=== PATIENT | female | born 1985 | race Caucasian/White ===

== ENCOUNTER → 2023-12-28 | Outpatient (CLI) | payer OTHER, SELFPAY | PROVIDERS: Referring Provider Internal Medicine; Visit Provider Internal Medicine | DX: Z23 Encounter for immunization (principal) | CPT/HCPCS: 90471; 90656 ==

== ENCOUNTER 2024-09-10 15:52 | Emergency (ER) | payer OTHER, SELFPAY ==
--- NOTE | 2024-09-10 16:11 | DI.CT.S_ITS ---
PROCEDURE: CT ABDOMEN PELVIS W CON INDICATIONS: weight loss, abd pain, TECHNIQUE: After the administration of intravenous contrast, axial sections acquired from the lung bases to the pubic symphysis. Coronal and sagittal reformats were performed. For radiation dose reduction, the following was used: automated exposure control, adjustment of mA and/or kV according to patient size. COMPARISON: None. FINDINGS: Image quality: Diagnostic Lower chest: Small fat containing left Bochdalek's hernia. Normal heart size. Liver: There is focal fat adjacent to the falciform ligament. Gallbladder and biliary system: Unremarkable, nondilated Pancreas: No ductal dilation Spleen: Nonenlarged Adrenals: No discrete nodules Kidneys: No solid renal mass. No hydronephrosis. Vessels and lymph nodes: The main portal vein appears patent. No abdominal aortic aneurysm. No enlarged lymph nodes by size criteria. Bowel and peritoneum: No acute small bowel obstruction. No drainable abscess or ascites. Possible mild segmental areas of colonic wall thickening, centered most in the splenic flexure. The appendix was not visualized. Stool ball is seen in the cecum. Body wall: Unremarkable Pelvis: Under distended urinary bladder. Reproductive organs are unremarkable on limited CT evaluation. Consider ultrasound if there is further concern Bones: No aggressive appearing osseous abnormality. IMPRESSION: Possible mild segmental areas of colonic wall thickening, most obvious at the splenic flexure. This could represent colitis. Colonoscopy correlation could further evaluate if clinically needed. No small bowel obstruction. A moderate cecal stool ball is present. Other findings above. Dictated by: Chong Saini M.D. on 09/10/2024 at 17:16 Approved by: Chong Saini M.D. on 09/10/2024 at 17:21
[2024-09-10 16:22] VITALS: BP 143/85; PULSE 82; RESP 16; TEMP 37; O2SAT 100
[2024-09-10 16:51] LABS: Add Manual Diff / Slide Review NO; Basophils Absolute Auto 100 /uL (0-100); Basophils Percent Auto 0.9 % (0-2); Eosinophils Absolute Auto 100 /uL (0-450); Eosinophils Percent Auto 1.2 % (2-4); Hematocrit 40.7 % (36-46); Hemoglobin 13.6 g/dL (12.0-16.0); Lymphocytes Absolute Auto 2300 /uL (1100-4500); Mean Corpuscular HGB Conc 33.5 % (30-36); Mean Corpuscular Hemoglobin 31.5 PG (26-34); Mean Corpuscular Volume 94.1 fL (80-100); Monocytes Absolute Auto 500 /uL (0-900); Monocytes Percent Auto 7.2 % (3-14); Neutrophils Absolute Auto 4600 /uL (1500-7000); Neutrophils Percent Auto 60.7 % (50-75); Platelet Count 272 X10^3/uL (150-400); Red Blood Cell Count 4.32 X10^6/uL (4.0-5.2); Red Cell Distribution Width 13.7 % (11.6-14.8); White Blood Cell Count 7.6 X10^3/uL (4.5-11.0)
[2024-09-10] MEDS: methylPREDNISolone 125 MG/2 ML VIAL IV (16:53)
[2024-09-10] MEDS: diphenhydrAMINE 50 MG/ML VIAL IV (16:53)
[2024-09-10 17:00] LABS: Bacteria Urine Occasional (0-1); Culture Indicated Urine Cult Not Indicated; Mucus Urine 1+ (Negative); RBC Urine 0-1/HPF (0-5/HPF); Squamous Epithelial Cell Urine 0-1 /HPF (0-5/HPF); Urine Volume 10mL (spun); WBC Urine 0-1/HPF (0-5/HPF)
[2024-09-10 17:09] LABS: Alanine Aminotransferase 19 IU/L (<35); Albumin 4.5 g/dL (3.5-5.0); Albumin Globulin Ratio 1.7 (1.0-2.8); Alkaline Phosphatase 56 U/L (38-126); Aspartate Aminotransferase 32 IU/L (14-36); BUN Creatinine Ratio 15.2 (6-22); Bilirubin Total 0.5 mg/dL (0.2-1.3); Blood Urea Nitrogen 12 mg/dL (7-17); Calcium 9.4 mg/dL (8.4-10.2); Carbon Dioxide 27 mmol/L (22-32); Chloride 104 mmol/L (98-107); Estimated Glomerular Filt Rate > 60 mL/min (>60); Globulin 2.6 g/dL (1.7-4.1); Glucose 87 mg/dL (70-99); HEMOLYSIS < 15 (0-50); Lipase 122 U/L (23-300); Sodium 138 mmol/L (137-145); Total Protein 7.1 g/dL (6.3-8.2)
--- NOTE | 2024-09-10 18:20 | ED_ITS ---
HPI - Abdominal Pain General Chief Complaint: Abdominal Pain Stated Complaint: abdomen pain Time Seen by Provider: 09/10/24 16:11 Source: patient, RN notes reviewed and old records reviewed Mode of arrival: Ambulatory Limitations: no limitations History of Present Illness HPI narrative: 39-year-old female history of [place] presents with complaint of some abdominal discomfort in the left but noticed more specifically very loud sounds particularly seemed to be coming from the right side of the abdomen for several months to a year. Patient has noted increase difficulty with maintaining weight and some weight loss particularly of the past 2 weeks. Has not noticed some occasional diarrheal stools but a change in caliber. No black or bloody stools. Patient notes did have a colonoscopy sometime ago for IBS type symptoms but was negative. Patient occasionally has nausea but no persistent nausea no vomiting. No new back or flank pain today. Denies any dysuria urgency or frequency. Is currently on their menses. They also notes some occasional night sweats but have related this more to be in on their menses. Patient states on sertraline no other daily medications. Report to contrast with hives. Related Data Previous Rx's ?Medication ?Instructions ?Recorded sertraline 100 mg tablet (Zoloft) 200 mg (2 x 100 mg) PO DAILY #60 04/20/24 tabs Allergies Allergy/AdvReac Type Severity Reaction Status Date / Time cefazolin Allergy Verified 09/10/24 16:23 Iodinated Contrast Media Allergy Hives Verified 09/10/24 16:23 Review of Systems Review of Systems ROS Unobtainable: All systems reviewed & are unremarkable except as noted in HPI and below Patient History Social History Smoking Status: Former smoker Smoking Status: Former smoker Exam Narrative Exam Narrative: GENERAL: Alert and oriented x three, thin, well-appearing female in mild distress. HEENT: Head normocephalic, atraumatic, EOMI, pupils reactive, face symmetric, moist mucous membranes NECK: Supple, full range of motion CARDIOVASCULAR: Regular rate and rhythm without murmurs, rubs or gallops. RESPIRATORY: Breath sounds equal bilaterally, no wheezes rales or rhonchi. ABDOMEN: Soft, very mild left upper quadrant tenderness. Normoactive bowel sounds all 4 quadrants. No guarding or rebound, rigidity, no mass : No CVA tenderness EXTREMITIES: Normal range of motion, no clubbing or edema. Neurovascularly intact NEUROLOGICAL: Cranial nerves II through XII grossly intact. Moving all extremities SKIN: Warm, dry, no petechiae, no rashes or lesions. Initial Vital Signs Initial Vital Signs: Vital Signs Temperature 98.6 F 09/10/24 16:22 Pulse Rate 82 09/10/24 16:22 Respiratory Rate 16 09/10/24 16:22 Blood Pressure 143/85 H 09/10/24 16:22 Pulse Oximetry 100 09/10/24 16:22 Oxygen Delivery Method Room Air 09/10/24 16:22 Course Orders Ordered: ED Orders 09/10/24 16:11 CT abdomen pelvis w con Stat 09/10/24 16:30 Complete Blood Count AUTO DIFF Stat Comprehensive Metabolic Panel Stat Lipase Stat Urine Microscopic Stat Discontinued Medications Diphenhydramine HCl (Diphenhydramine 50 Mg/Ml Vial) 50 mg IV NOW ONE Stop: 09/10/24 16:38 Last Admin: 09/10/24 16:53 Dose: 50 mg Documented By: SINDY Methylprednisolone (Methylprednisolone 125 Mg/2 Ml Vial) 125 mg IV NOW ONE Stop: 09/10/24 16:38 Last Admin: 09/10/24 16:53 Dose: 125 mg Documented By: SINDY Vital Signs Vital signs: Vital Signs - 8 hr 09/10/24 16:22 09/10/24 19:12 Temperature 98.6 F Pulse Rate 82 63 Respiratory Rate 16 Blood Pressure 143/85 H 137/67 Pulse Oximetry 100 96 Oxygen Delivery Method Room Air Room Air MDM - Abdominal Pain Lab Data 09/10/24 16:30 09/10/24 16:30 Labs: Lab Results 09/10/24 Range/Units 16:30 WBC 7.6 (4.5-11.0) X10^3/uL RBC 4.32 (4.0-5.2) X10^6/uL Hgb 13.6 (12.0-16.0) g/dL Hct 40.7 (36-46) % MCV 94.1 (80-100) fL MCH 31.5 (26-34) PG MCHC 33.5 (30-36) % RDW 13.7 (11.6-14.8) % Plt Count 272 (150-400) X10^3/uL Neut % (Auto) 60.7 (50-75) % Lymph % (Auto) 30.0 (25-40) % [place] % (Auto) 7.2 (3-14) % Eos % (Auto) 1.2 L (2-4) % Baso % (Auto) 0.9 (0-2) % Neut # (Auto) 4600 (4921-1420) /uL Lymph # (Auto) 2300 (3371-8606) /uL [place] # (Auto) 500 (0-900) /uL Eos # (Auto) 100 (0-450) /uL Baso # (Auto) 100 (0-100) /uL Sodium 138 (137-145) mmol/L Potassium 4.0 (3.4-5.1) mmol/L Chloride 104 (98-107) mmol/L Carbon Dioxide 27 (22-32) mmol/L BUN 12 (7-17) mg/dL Creatinine 0.79 (0.52-1.04) mg/dL Estimated GFR > 60 (>60) mL/min BUN/Creatinine Ratio 15.2 (6-22) Glucose 87 (70-99) mg/dL Calcium 9.4 (8.4-10.2) mg/dL Total Bilirubin 0.5 (0.2-1.3) mg/dL AST 32 (14-36) IU/L ALT 19 (<35) IU/L Alkaline Phosphatase 56 (38-126) U/L Total Protein 7.1 (6.3-8.2) g/dL Albumin 4.5 (3.5-5.0) g/dL Globulin 2.6 (1.7-4.1) g/dL Albumin/Globulin Ratio 1.7 (1.0-2.8) Lipase 122 (23-300) U/L Urine RBC 0-1/hpf (0-5/HPF) Urine WBC 0-1/hpf (0-5/HPF) Ur Squamous Epith Cells 0-1 /hpf (0-5/HPF) Urine Bacteria Occasional (0-1) (None) Urine Mucus 1+ H (Negative) Ur Culture Indicated? Cult not indicated Vol Urine Centrifuged 10ml (spun) Point of care testing: Point of Care Testing Test Results Negative Urine Dip Bedside Urine Glucose Negative Bedside Urine Bilirubin - Negative Bedside Urine Ketone - Negative Urine Specific [place] 1.030 Bedside Urine Occult Blood ++ Bedside Urine pH 5.5 Bedside Urine Protein - Negative Bedside Urine Urobilinogen +/- 1mg Bedside Urine Nitrite - Negative Bedside Urine Leukocytes - Negative Esterase MDM Narrative Medical decision making narrative: Labs show normal white count, hemoglobin and platelets, electrolytes, BUN creatinine and LFTs are normal. Point of care is negative. Patient has blood, no nitrates no leuks point of care urine. Micro shows 1 red cell 1 white cell 1 squamous, no bacteria. CT abdomen pelvis notes small fat containing left both legs hernia. Focal fat adjacent to the falciform ligament on the liver. Possible mild segmental areas of colonic wall thickening centered most in the splenic flexure stool ball is cecum. This could represent colitis. Colonoscopy correlation could further evaluate if clinically needed no small-bowel obstruction. 39-year-old female with 3 months of abdominal pain increasingly worse discomfort left lower quadrant in particular with nausea, weight loss. Reviewed labs and findings with the patient would recommend colonoscopy to evaluate for possible Crohn/ulcerative colitis versus other potential causes. Patient we will reach out to set up follow up. Discussed return precautions. Discharge Plan Departure Patient Disposition: Home Clinical Impression: Colitis Activity Restrictions/Additional Instructions: Your imaging shows possible segmental areas of colonic wall thickening most obvious since a splenic fracture, do recommend you have colonoscopy to evaluate for possible biopsy. It is also noted you have a moderate cecal stool ball. Incidentally you have a small fat containing left Bochdalek's hernia on your imaging. Follow up colonoscopy contacts included below. Please return if you develop fevers, rapidly worsening or new abdominal back or flank pain, persistent vomiting, new black or bloody stools, lightheadedness or passing out or other new or concerning changes. Prescriptions: No Action sertraline [Zoloft] 100 mg tablet 200 mg PO DAILY Qty: 60 6RF Referrals: Jhon Lozada MD [Physician, General Surgery] Stand Alone Forms: Patient Portal/API
[2024-09-10 19:12] VITALS: BP 137/67; PULSE 63; O2SAT 96
== END 2024-09-10 19:12 | disposition home or self-care (01) ==
PROVIDERS: Emergency Provider Emergency Medicine
DX: K52.9 Noninfective gastroenteritis and colitis, unspecified (principal)
CPT/HCPCS: 36415; 74177; 80053; 81003; 81015; 81025; 83690; 85025; 96374; 96375; 99284; J1200; J2919; Q9967

== ENCOUNTER 2024-09-13 12:05 | Day surgery (SDC) | payer OTHER, SELFPAY ==
--- NOTE | 2024-09-13 | PATH_ITS ---
[facility] Accession Number: [id number] No. of containers..05 Tissue . 01 Material submitted: . PART A: small bowel - ILEUM TERMINAL PART B: colon - COLON, RIGHT PART C: colon - COLON, TRANSVERSE PART D: colon - COLON, LEFT PART E: rectum - RECTAL . 01 Diagnosis: Part A: ILEUM TERMINAL: Ileal mucosa with no diagnostic alterations. No active inflammation, granulomas, or dysplasia identified. . Part B: COLON, RIGHT: Colonic mucosa with no diagnostic alterations. No active inflammation, granulomas, dysplasia, or malignancy identified. . Part C: COLON, TRANSVERSE: Colonic mucosa with no diagnostic alterations. No active inflammation, granulomas, dysplasia, or malignancy identified. . Part D: COLON, LEFT: Colonic mucosa with no diagnostic alterations. No active inflammation, granulomas, dysplasia, or malignancy identified. . Part E: RECTAL: Colonic mucosa with no diagnostic alterations. No active inflammation, granulomas, dysplasia, or malignancy identified. [facility] 09/19/2024 1545 Local . 01 Electronically signed: . Edwin Kirk MD, Pathologist NPI- [id number] . 01 Gross description: . Part A: ILEUM TERMINAL: Received in formalin is 1 fragment(s) of smith, soft tissue measuring 0.6 x 0.2 x 0.2 cm submitted entirely in 1 cassette(s) . Part B: COLON, RIGHT: Received in formalin is 1 fragment(s) of smith, soft tissue measuring 0.5 x 0.3 x 0.3 cm submitted entirely in 1 cassette(s) . Part C: COLON, TRANSVERSE: Received in formalin is 1 fragment(s) of smith, soft tissue measuring 0.3 x 0.2 x 0.2 cm submitted entirely in 1 cassette(s) . Part D: COLON, LEFT: Received in formalin are 2 fragment(s) of smith, soft tissue measuring 0.3 x 0.3 x 0.3 cm to 0.4 x 0.2 x 0.2 cm submitted entirely in 1 cassette(s) . Part E: RECTAL: Received in formalin are 2 fragment(s) of smith, soft tissue measuring 0.1 x 0.1 x 0.1 cm to 0.3 x 0.2 x 0.2 cm submitted entirely in 1 cassette(s) /[facility] 09/19/2024 1545 Local . 01 Pathologist provided ICD-10: K52.9 . 01 CPT . 682985, 000447, 006550, 506631, 833143 Specimen Comment: A courtesy copy of this report has been sent to [phone] Performed at: [address] [id number] MD Edwin Kirk MD Phone: [phone]
[2024-09-13 12:34] VITALS: BP 95/61; PULSE 66; RESP 16; TEMP 36.6; O2SAT 99
[2024-09-13] MEDS: LACTATED RINGERS 1,000 ML 42 ML IV (12:54)
[2024-09-13] MEDS: ONDANSETRON 4 MG/2 ML INJ IV (12:54)
--- NOTE | 2024-09-13 13:24 | PM.HP.IH.1 ---
History of Present Illness History of Present Illness Date Patient Seen: 09/13/24 Time Patient Seen: 13:24 Chief complaint[place] [facility]arrative: Kiya is a 39 year old woman who presents for a colonoscopy after a CT scan showed some possible thickening in the region of the splenic flexure. She had been experiencing abdominal pain and an audible grinding type sound that correlatd with bowel peristalsis over roughly one year. She experienced increased pain and went to the ER early this week where the CT scan was performed. No melena or rectal bleeding. She has lost roughly 10 lbs recently despite trying to gain weight. She did have a colonoscopy some 20 years ago for IBS type symptoms. She has had an open appendectomy as a child. [facility] Social History Smoking Status: Former smoker alcohol intake: never Meds Home Medications and Allergies Home Medications ?Medication ?Instructions ?Recorded ?Confirmed ?Type sertraline 100 mg tablet (Zoloft) 200 mg (2 x 100 mg) PO DAILY #60 04/20/24 09/13/24 Rx tabs Allergies Allergy/AdvReac Type Severity Reaction Status Date / Time cefazolin Allergy Verified 09/13/24 12:33 Iodinated Contrast Media Allergy Hives Verified 09/13/24 12:33 Exam Vital Signs (past 8 hours): - 09/13/24 12:34 Temperature 97.8 F Pulse Rate 66 Respiratory Rate 16 Blood Pressure 95/61 Pulse Oximetry 99 Oxygen Delivery Method Room Air Oxygen Delivery Method Room Air Const General: healthy appearing Assessment & Plan Assessment and plan (1) Abnormal findings on imaging test: Status: Acute Plan Colonoscopy Time-Based Coding :: [TOTAL MINUTES] spent with patient and on the chart (including review of chart, obtaining history, exam, reviewing outside data, placing orders, documenting exam and treatment plan, and counseling patient) on [DATE]. [employer] Document charge(s): No
[2024-09-13 14:24] VITALS: BP 103/61; PULSE 68; RESP 20; TEMP 36.2; O2SAT 100
--- NOTE | 2024-09-13 14:24 | PM.OP.COLON ---
Operative Date/Time/Diagnoses Date of procedure: 09/13/24 Time of procedure: 14:24 Pre-op diagnosis: Abnormal CT scan Post-op diagnosis: same Procedure & Clinicians Study performed: Colonoscopy Same procedure(s) as scheduled: Yes Surgeon: Jhon Lozada Procedure Notes Procedure in detail: Surgeon: Jhon Lozada MD Anesthesia: Shayne Guillory D.O. Procedure: The patient was brought to the endoscopy suite, placed in left lateral decubitus position. The patient was connected to monitoring devices. A time-out was performed. Sedation was administered. Once the patient was adequately sedated, a digital rectal exam was performed and was normal. The scope was then inserted and advanced to the cecum where the appendiceal orifice was identified and photographed. The terminal ileum was intubated and no gross abnormalities were visualized. Random biopsies were taken from the ileal mucosa with cold forceps. The scope was then slowly withdrawn over greater than 6 minutes. The mucosa was thoroughly inspected. No gross abnormalities were seen. Random biopsies were taken from the right colon, transverse colon, left colon and rectum with cold forceps. The scope was retroflexed in the rectum. No abnormalities were seen. The scope was straightened and removed. The patient was awakened and brought to recovery. Scope withdrawal time: 10 minutes Sedation time: 17 minutes EBL: 5 mL Findings: Grossly normal colon and terminal ileum Post-procedure Disposition: PACU
[2024-09-13 14:29] VITALS: BP 107/65; PULSE 56; RESP 16; O2SAT 99
[2024-09-13 14:34] VITALS: BP 102/64; PULSE 52; RESP 18; O2SAT 99
[2024-09-13 14:45] VITALS: BP 97/62; PULSE 58; RESP 16; TEMP 36.2; O2SAT 99
[2024-09-13 14:52] VITALS: BP 98/64; PULSE 56; RESP 12; TEMP 36.2; O2SAT 99
== END 2024-09-13 15:08 | disposition home or self-care (01) ==
PROVIDERS: Referring Provider Surgery; Visit Provider Surgery
PROC: 0DJD8ZZ Inspection of Lower Intestinal Tract, Via Natural or Artificial Opening Endoscopic (ICD-10-PCS; CPT 45378; principal; 2024-09-13 13:30)
DX: R93.5 Abnormal findings on diagnostic imaging of other abdominal regions, including retroperitoneum (principal); R10.9 Unspecified abdominal pain; R63.4 Abnormal weight loss; Z87.891 Personal history of nicotine dependence
CPT/HCPCS: 45380; J2405; J2704

== ENCOUNTER → 2024-09-14 12:39 | Outpatient (CLI) | payer OTHER, SELFPAY ==
[2024-09-14 14:07] LABS: Carcinoembryonic Antigen 0.9 ng/mL (0.1-3.0)
== END ==
PROVIDERS: Referring Provider Obstetrics & Gynecology; Visit Provider Obstetrics & Gynecology
DX: R93.89 Abnormal findings on diagnostic imaging of other specified body structures (principal)
CPT/HCPCS: 36415; 82378; 86304; 86305

== ENCOUNTER 2024-10-07 19:31 | Emergency (ER) | payer OTHER, SELFPAY ==
[2024-10-07 19:38] VITALS: BP 120/74; PULSE 60; RESP 18; TEMP 37; O2SAT 99
--- NOTE | 2024-10-07 19:51 | ED_ITS ---
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 It was a solid needle she felt it go through both pairs of gloves and solidly through her skin. She immediately washed her hand, cleaned the wound, replaced the gloves. Patient was not exposed. The source patient is very low risk. 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 Related Data Previous Rx's ?Medication ?Instructions ?Recorded sertraline 100 mg tablet (Zoloft) 200 mg (2 x 100 mg) PO DAILY #60 04/20/24 tabs sucralfate 1 gram tablet (Carafate) 1 g PO QACHS #30 t abs 09/17/24 Allergies Allergy/AdvReac Type Severity Reaction Status Date / Time cefazolin Allergy Verified 10/07/24 19:38 Iodinated Contrast Media Allergy Hives Verified 10/07/24 19:38 Patient History Social History alcohol intake: never Exam Initial Vital Signs Initial Vital Signs: Vital Signs Temperature 98.6 F 10/07/24 19:38 Pulse Rate 60 10/07/24 19:38 Respiratory Rate 18 10/07/24 19:38 Blood Pressure 120/74 10/07/24 19:38 Pulse Oximetry 99 10/07/24 19:38 Oxygen Delivery Method Room Air 10/07/24 19:38 General: Alert appropriate in no acute distress Respiratory: Able to speak in full sentences, no obvious respiratory distress Skin: No obvious rashes, warm and dry Neurologic: Grossly intact no obvious asymmetries or abnormalities Psych: appropriate insight and affect, cooperative Extremity: Tiny puncture wound mid left thumb not currently bleeding Course Orders Ordered: ED Orders 10/07/24 19:54 Alanine Aminotransferase Stat HIV 1 & 2 Ab/Ag 4th Gen Combo Stat Hep C Virus Ab w/Reflex Quant Stat Vital Signs Vital signs: Vital Signs - 8 hr 10/07/24 19:38 Temperature 98.6 F Pulse Rate 60 Respiratory Rate 18 Blood Pressure 120/74 Pulse Oximetry 99 Oxygen Delivery Method Room Air Medical Decision Making Lab Data Labs: Lab Results 10/07/24 Range/Units 19:54 ALT 20 (<35) IU/L Hepatitis C Antibody Reactive H (NEGATIVE) s/c HIV 1&2 Ab/P24 Ag 4thGn Negative (NEGATIVE) MDM Narrative Medical decision making narrative: Needlestick exposure while doing surgery this afternoon. It was a solid needle, appropriately cleaned post exposure. Low risk patient with all forms filled out by patient and lab testing done. Lab testing including quantitative hep C as well as HIV testing is done for the patient. She recently had positive hepatitis-B titers did not want to have this retested. She also is up-to-date on tetanus and declined any tetanus today. With shared decision-making given the very low exposure risk no post exposure prophylaxis was desired. She is safely discharged Discharge Plan Departure Patient Disposition: Home Clinical Impression: Accidental hypodermic needlestick injury with exposure to body fluid Instructions: DI for Accidental Exposure to Body Fluids Prescriptions: No Action sertraline [Zoloft] 100 mg tablet 200 mg PO DAILY Qty: 60 6RF sucralfate [Carafate] 1 gram tablet 1 g PO QACHS Qty: 30 2RF Stand Alone Forms: Patient Portal/API
[2024-10-07 20:14] LABS: Alanine Aminotransferase 20 IU/L (<35)
[2024-10-07 21:26] LABS: HIV 1 & 2 Ab/Ag 4th Gen Combo NEGATIVE (NEGATIVE); Hep C Virus Ab w/Reflex Quant REACTIVE s/c (NEGATIVE)
== END 2024-10-07 20:23 | disposition home or self-care (01) ==
PROVIDERS: Emergency Provider Emergency Medicine
DX: S69.92XA Unspecified injury of left wrist, hand and finger(s), initial encounter (principal); Z77.21 Contact with and (suspected) exposure to potentially hazardous body fluids
CPT/HCPCS: 84460; 86803; 87389; 87522; 99281; 99283

== ENCOUNTER 2024-10-14 12:53 | Emergency (ER) | payer OTHER, SELFPAY ==
[2024-10-14] VITALS (13 sets, daily range): BP systolic 120–142; BP diastolic 60–81; PULSE 55–72; RESP 16–23; TEMP 36.4; O2SAT 96–100
[2024-10-14 13:35] LABS: Add Manual Diff / Slide Review NO; Hematocrit 42.2 % (36-46); Hemoglobin 14.6 g/dL (12.0-16.0); Lymphocytes Absolute Auto 2100 /uL (1100-4500); Mean Corpuscular HGB Conc 34.6 % (30-36); Mean Corpuscular Hemoglobin 32.3 PG (26-34); Mean Corpuscular Volume 93.2 fL (80-100); Platelet Count 275 X10^3/uL (150-400)
[2024-10-14 13:41] LABS: Alanine Aminotransferase 24 IU/L (<35); Albumin 4.8 g/dL (3.5-5.0); Albumin Globulin Ratio 1.7 (1.0-2.8); Alkaline Phosphatase 58 U/L (38-126); Blood Urea Nitrogen 8 mg/dL (7-17); Calcium 9.6 mg/dL (8.4-10.2); Carbon Dioxide 23 mmol/L (22-32); Chloride 105 mmol/L (98-107); Estimated Glomerular Filt Rate > 60 mL/min (>60); Globulin 2.8 g/dL (1.7-4.1); Glucose 93 mg/dL (70-99); HEMOLYSIS < 15 (0-50); Lipase 238 U/L (23-300); Potassium 3.7 mmol/L (3.4-5.1); Sodium 138 mmol/L (137-145); Total Protein 7.6 g/dL (6.3-8.2)
--- NOTE | 2024-10-14 13:53 | DI.CT.S_ITS ---
PROCEDURE: CT ABDOMEN PELVIS W CON INDICATIONS: Abdominal pain. Possible bowel obstruction. TECHNIQUE: After the administration of intravenous contrast, axial sections acquired from the lung bases to the pubic symphysis. Coronal and sagittal reformats were performed. For radiation dose reduction, the following was used: automated exposure control, adjustment of mA and/or kV according to patient size. COMPARISON: [facility], CT, CT ABDOMEN PELVIS W CON, 09/10/2024, 16:59. FINDINGS: Image quality: Diagnostic. Lower Chest: No significant findings. ABDOMEN: Liver: No solid mass. Focal fatty infiltration adjacent to the falciform ligament remains unchanged Gallbladder: No radiopaque gallstones or wall thickening. Biliary ducts: No biliary dilation. Pancreas: No ductal dilation. Spleen: Size is within normal limits. Adrenal Glands: No adrenal nodules. Kidneys and Ureters: No hydronephrosis. No solid mass. No complex renal cystic lesion which requires follow up. Stomach and Bowel: Normal colonic caliber, without significant wall thickening. Peritoneum: No abnormal intraperitoneal fluid. No free air. Physiologic pelvis, similar prior Ventral Wall: No significant ventral hernia. Abdominal Nodes: No retroperitoneal or mesenteric adenopathy by size criteria. Vessels: Aorta and inferior vena cava are normal in size. PELVIS: Pelvic Organs: Unremarkable. Bladder: No bladder wall thickening, accounting for underdistention. Pelvic Nodes: No enlarged lymph nodes. Miscellaneous: No inguinal hernias are seen. Bones: No aggressive osseous abnormality. IMPRESSION: No evidence of bowel obstruction Approved by: Tj Reddy M.D. on 10/14/2024 at 13:52
[2024-10-14] MEDS: diphenhydrAMINE 50 MG/ML VIAL IV (14:11)
[2024-10-14] MEDS: ONDANSETRON 4 MG/2 ML INJ IV (14:11)
--- NOTE | 2024-10-14 15:42 | ED.ABDPAIN ---
HPI - Abdominal Pain General Chief Complaint: Abdominal Pain Stated Complaint: Abdominal pain, suspected bowel obstruction Time Seen by Provider: 10/14/24 13:53 Source: patient Mode of arrival: Ambulatory History of Present Illness HPI narrative: 39 years old female came today complaining of intermittent generalized abdominal pain since August 2024. The latest episode of abdominal pain started 2 days ago and today the pain got worse with nausea vomiting after food. Her last bowel movement was yesterday and was normal. She denied any passing gas, fever, chest pain, shortness of breath, dizziness, loss of consciousness, urine problem. She finished her period 3 days ago. Related Data Previous Rx's ?Medication ?Instructions ?Recorded sertraline 100 mg tablet (Zoloft) 200 mg (2 x 100 mg) PO DAILY #60 04/20/24 tabs sucralfate 1 gram tablet (Carafate) 1 g PO QACHS #30 tabs 09/17/24 Allergies Allergy/AdvReac Type Severity Reaction Status Date / Time cefazolin Allergy Verified 10/14/24 12:57 Cephalosporins Allergy SJS Verified 10/14/24 12:57 blisters Iodinated Contrast Media Allergy Anaphylaxis Verified 10/14/24 12:57 Review of Systems Review of Systems Narrative: Positive for intermittent generalized abdominal pain since August 2024 and got worse today. Nausea vomiting. Negative for fever, chest pain, shortness of breath, urine problem, diarrhea. Patient History Social History alcohol intake: never Exam Initial Vital Signs Initial Vital Signs: Vital Signs Temperature 97.5 F L 10/14/24 12:57 Pulse Rate 72 10/14/24 12:57 Respiratory Rate 17 10/14/24 12:57 Blood Pressure 142/72 H 10/14/24 12:57 Pulse Oximetry 100 10/14/24 12:57 Oxygen Delivery Method Room Air 10/14/24 12:57 Const General: cooperative, well developed and No acute distress Neck Neck: supple Resp Other: Clear to auscultation bilaterally. No wheezing or rhonchi. No respiratory distress. Cardio Other: Normal S1-S2 without murmur. Regular rhythm. GI Other: Generalized mild tenderness on palpation without guarding or rebound tenderness or distention. Skin General: no rashes or lesions noted Neuro Other: Alert oriented x3. Answers question appropriately. Extrem Other: No pedal edema on both legs. Course Orders Ordered: Discontinued Medications Diphenhydramine HCl (Diphenhydramine 50 Mg/Ml Vial) 50 mg IV NOW ONE Stop: 10/14/24 14:02 Last Admin: 10/14/24 14:11 Dose: 50 mg Documented By: CHLOE Hydromorphone HCl (Hydromorphone Hcl 0.5 Mg/0.5 Ml Syringe) 0.5 mg IV NOW ONE Stop: 10/14/24 14:02 Last Admin: 10/14/24 14:10 Dose: 0.5 mg Documented By: CHLOE Hydromorphone HCl (Hydromorphone Hcl 0.5 Mg/0.5 Ml Syringe) 0.5 mg IV NOW ONE Stop: 10/14/24 15:14 Last Admin: 10/14/24 15:33 Dose: 0.5 mg Documented By: AGUILA Lactated Ringer's (Lactated Ringers) 1,000 mls @ 1,000 mls/hr IV BOLUS ONE Stop: 10/14/24 16:42 Last Infusion: 10/14/24 17:15 Dose: Infused Documented By: Admin: 10/14/24 16:02 Dose: 1,000 mls/hr Documented By: AGUILA Methylprednisolone (Methylprednisolone 125 Mg/2 Ml Vial) 125 mg IV NOW ONE Stop: 10/14/24 14:02 Last Admin: 10/14/24 14:10 Dose: 125 mg Documented By: CHLOE Ondansetron HCl (Ondansetron 4 Mg/2 Ml Inj) 4 mg IV NOW PRN PRN Reason: Nausea And Vomiting Last Admin: 10/14/24 14:11 Dose: 4 mg Documented By: CHLOE Ondansetron HCl (Ondansetron 4 Mg Odt) 4 mg PO NOW PRN PRN Reason: Nausea And Vomiting Vital Signs Vital signs: Vital Signs - 8 hr 10/14/24 12:57 10/14/24 13:24 10/14/24 13:25 Temperature 97.5 F L Pulse Rate 72 69 Respiratory Rate 17 Blood Pressure 142/72 H 135/81 Pulse Oximetry 100 97 Oxygen Delivery Method Room Air 10/14/24 13:25 10/14/24 13:30 10/14/24 13:30 Temperature Pulse Rate 62 55 L Respiratory Rate Blood Pressure 134/69 Pulse Oximetry 99 98 Oxygen Delivery Method Room Air 10/14/24 14:00 10/14/24 14:00 10/14/24 14:38 Temperature Pulse Rate 59 L 71 Respiratory Rate Blood Pressure 123/80 Pulse Oximetry 99 100 Oxygen Delivery Method Room Air 10/14/24 15:00 10/14/24 15:30 10/14/24 15:40 Temperature Pulse Rate 63 66 66 Respiratory Rate 20 18 23 Blood Pressure Pulse Oximetry 98 96 96 Oxygen Delivery Method 10/14/24 15:40 10/14/24 16:00 10/14/24 16:00 Temperature Pulse Rate 63 Respiratory Rate Blood Pressure 121/76 126/67 Pulse Oximetry 96 Oxygen Delivery Method MDM - Abdominal Pain Lab Data 10/14/24 13:21 10/14/24 13:21 Labs: Lab Results 10/14/24 Range/Units 13:21 WBC 7.0 (4.5-11.0) X10^3/uL RBC 4.53 (4.0-5.2) X10^6/uL Hgb 14.6 (12.0-16.0) g/dL Hct 42.2 (36-46) % MCV 93.2 (80-100) fL MCH 32.3 (26-34) PG MCHC 34.6 (30-36) % RDW 13.9 (11.6-14.8) % Plt Count 275 (150-400) X10^3/uL Neut % (Auto) 59.5 (50-75) % Lymph % (Auto) 29.6 (25-40) % [place] % (Auto) 7.2 (3-14) % Eos % (Auto) 2.5 (2-4) % Baso % (Auto) 1.2 (0-2) % Neut # (Auto) 4200 (0240-5428) /uL Lymph # (Auto) 2100 (5009-7029) /uL [place] # (Auto) 500 (0-900) /uL Eos # (Auto) 200 (0-450) /uL Baso # (Auto) 100 (0-100) /uL Sodium 138 (137-145) mmol/L Potassium 3.7 (3.4-5.1) mmol/L Chloride 105 (98-107) mmol/L Carbon Dioxide 23 (22-32) mmol/L BUN 8 (7-17) mg/dL Creatinine 0.73 (0.52-1.04) mg/dL Estimated GFR > 60 (>60) mL/min BUN/Creatinine Ratio 11.0 (6-22) Glucose 93 (70-99) mg/dL Calcium 9.6 (8.4-10.2) mg/dL Total Bilirubin 0.8 (0.2-1.3) mg/dL AST 32 (14-36) IU/L ALT 24 (<35) IU/L Alkaline Phosphatase 58 (38-126) U/L Total Protein 7.6 (6.3-8.2) g/dL Albumin 4.8 (3.5-5.0) g/dL Globulin 2.8 (1.7-4.1) g/dL Albumin/Globulin Ratio 1.7 (1.0-2.8) Lipase 238 (23-300) U/L Point of care testing: Point of Care Testing Test Results Negative Urine Dip Bedside Urine Glucose Negative Bedside Urine Bilirubin - Negative Bedside Urine Ketone - Negative Urine Specific [place] 1.010 Bedside Urine Occult Blood +/- Bedside Urine pH 6.0 Bedside Urine Protein - Negative Bedside Urine Urobilinogen - Negative Bedside Urine Nitrite - Negative Bedside Urine Leukocytes - Negative Esterase Imaging Data CT scan - abdomen/pelvis: Radiologist's Impression: PROCEDURE: CT ABDOMEN PELVIS W CON INDICATIONS: Abdominal pain. Possible bowel obstruction. TECHNIQUE: After the administration of intravenous contrast, axial sections acquired from the lung bases to the pubic symphysis. Coronal and sagittal reformats were performed. For radiation dose reduction, the following was used: automated exposure control, adjustment of mA and/or kV according to patient size. COMPARISON: [facility], CT, CT ABDOMEN PELVIS W CON, 09/10/2024, 16:59. FINDINGS: Image quality: Diagnostic. Lower Chest: No significant findings. ABDOMEN: Liver: No solid mass. Focal fatty infiltration adjacent to the falciform ligament remains unchanged Gallbladder: No radiopaque gallstones or wall thickening. Biliary ducts: No biliary dilation. Pancreas: No ductal dilation. Spleen: Size is within normal limits. Adrenal Glands: No adrenal nodules. Kidneys and Ureters: No hydronephrosis. No solid mass. No complex renal cystic lesion which requires follow up. Stomach and Bowel: Normal colonic caliber, without significant wall thickening. Peritoneum: No abnormal intraperitoneal fluid. No free air. Physiologic pelvis, similar prior Ventral Wall: No significant ventral hernia. Abdominal Nodes: No retroperitoneal or mesenteric adenopathy by size criteria. Vessels: Aorta and inferior vena cava are normal in size. PELVIS: Pelvic Organs: Unremarkable. Bladder: No bladder wall thickening, accounting for underdistention. Pelvic Nodes: No enlarged lymph nodes. Miscellaneous: No inguinal hernias are seen. Bones: No aggressive osseous abnormality. IMPRESSION: No evidence of bowel obstruction Approved by: Tj Reddy M.D. on 10/14/2024 at 13:52 MDM Narrative Medical decision making narrative: 39 years old female with intermittent abdominal pain since August 2024 and latest episode started 2 days ago and got worse today. He also reported nausea vomiting but denied any urine symptoms, diarrhea. Her last bowel movement was yesterday. On exam showed generalized mild abdominal tenderness on palpation without guarding or rebound tenderness or distention. Her CV exam, lung exam were normal. Her CBC, CMP, lipase were normal. A UA and urine test were normal. Her CT scan abdomen and pelvis showed no acute finding. I discussed the case with our on-call surgeon who came down and did a consult in the ED. she will continue with Tylenol as needed for pain and drink plenty of fluid. She will follow up with a car seat coverer outpatient. Discharge Plan Departure Patient Disposition: Home Clinical Impression: Abdominal pain, Nausea & vomiting Instructions: DI for Abdominal Pain-Adult, Nausea and Vomiting-Adult Activity Restrictions/Additional Instructions: Please set up primary care doctor and car seat coverer for follow up outpatient. Please come back to the emergency room if any worsening symptoms including but not limited to chest pain, shortness of breath, fever, worsening abdominal pain, persistent nausea vomiting, dehydration. Prescriptions: No Action sertraline [Zoloft] 100 mg tablet 200 mg PO DAILY Qty: 60 6RF sucralfate [Carafate] 1 gram tablet 1 g PO QACHS Qty: 30 2RF Stand Alone Forms: Patient Portal/API
[2024-10-14] MEDS: LACTATED RINGERS 1,000 ML 1000 ML IV (16:02)
--- NOTE | 2024-10-14 16:47 | P.CONS_ITS ---
History of Present Illness Consult details Date Patient Seen: 10/14/24 Time Patient Seen: 16:48 Chief complaint: Abdominal pain, suspected bowel obstruction Narrative: The patient is a 39-year-old female who presents with about a 7-8 week history of vague abdominal pain with aggressive borborygmi. She describes loud episodes of borborygmi followed by projectile vomiting without any nausea. Of note, the patient had an open appendectomy as a child. She denies fevers and chills. Her bowel habits are variable but of late have been fairly normal and regular. She has undergone a workup with the local surgeon, Dr. Lozada. She underwent a colonoscopy September 13 with no significant findings. Random biopsies were taken both of the colon and the terminal ileum per the colonoscopy report and the pathology was negative according to the patient. She presents today due to feeling of abdominal pressure. She denies any vomiting. She is somewhat concerned that she could have a possible bowel obstruction. She states she has not passed any flatus since Tuesday. The patient was due to travel across country to [place] today and canceled her flight due to concerns about her abdomen. Meds Home Medications and Allergies Home Medications ?Medication ?Instructions ?Recorded ?Confirmed ?Type sertraline 100 mg tablet (Zoloft) 200 mg (2 x 100 mg) PO DAILY #60 04/20/24 09/13/24 Rx tabs sucralfate 1 gram tablet (Carafate) 1 g PO QACHS #30 t abs 09/17/24 Rx Allergies Allergy/AdvReac Type Severity Reaction Status Date / Time cefazolin Allergy Verified 10/14/24 12:57 Cephalosporins Allergy SJS Verified 10/14/24 12:57 blisters Iodinated Contrast Media Allergy Anaphylaxis Verified 10/14/24 12:57 Review of Systems Review of Systems ROS: Yes All systems reviewed with the patient and are negative except as otherwise documented Exam Vital Signs (past 8 hours): - 10/14/24 12:57 10/14/24 13:24 10/14/24 13:25 Temperature 97.5 F L Pulse Rate 72 69 Respiratory Rate 17 Blood Pressure 142/72 H 135/81 Pulse Oximetry 100 97 Oxygen Delivery Method Room Air 10/14/24 13:25 10/14/24 13:30 10/14/24 13:30 Temperature Pulse Rate 62 55 L Respiratory Rate Blood Pressure 134/69 Pulse Oximetry 99 98 Oxygen Delivery Method Room Air 10/14/24 14:00 10/14/24 14:00 10/14/24 14:38 Temperature Pulse Rate 59 L 71 Respiratory Rate Blood Pressure 123/80 Pulse Oximetry 99 100 Oxygen Delivery Method Room Air 10/14/24 15:00 10/14/24 15:30 10/14/24 15:40 Temperature Pulse Rate 63 66 66 Respiratory Rate 20 18 23 Blood Pressure Pulse Oximetry 98 96 96 Oxygen Delivery Method 10/14/24 15:40 10/14/24 16:00 10/14/24 16:00 Temperature Pulse Rate 63 Respiratory Rate Blood Pressure 121/76 126/67 Pulse Oximetry 96 Oxygen Delivery Method Oxygen Delivery Method Room Air Narrative Exam Narrative: The patient is alert and appears worried. Neck is supple Chest is clear to auscultation bilaterally Cardiac reveals a regular rate and rhythm Abdomen is mildly distended, soft with diffuse mild tenderness without guarding or rigidity. She has some tympany over the transverse colon. There are no peritoneal signs. Bowel sounds are hypoactive Objective Imaging Abdominal x-ray: Radiologist's impression: PROCEDURE: CT ABDOMEN PELVIS W CON INDICATIONS: Abdominal pain. Possible bowel obstruction. TECHNIQUE: After the administration of intravenous contrast, axial sections acquired from the lung bases to the pubic symphysis. Coronal and sagittal reformats were performed. For radiation dose reduction, the following was used: automated exposure control, adjustment of mA and/or kV according to patient size. COMPARISON: [facility], CT, CT ABDOMEN PELVIS W CON, 09/10/2024, 16:59. FINDINGS: Image quality: Diagnostic. Lower Chest: No significant findings. ABDOMEN: Liver: No solid mass. Focal fatty infiltration adjacent to the falciform ligament remains unchanged Gallbladder: No radiopaque gallstones or wall thickening. Biliary ducts: No biliary dilation. Pancreas: No ductal dilation. Spleen: Size is within normal limits. Adrenal Glands: No adrenal nodules. Kidneys and Ureters: No hydronephrosis. No solid mass. No complex renal cystic lesion which requires follow up. Stomach and Bowel: Normal colonic caliber, without significant wall thickening. Peritoneum: No abnormal intraperitoneal fluid. No free air. Physiologic pelvis, similar prior Ventral Wall: No significant ventral hernia. Abdominal Nodes: No retroperitoneal or mesenteric adenopathy by size criteria. Vessels: Aorta and inferior vena cava are normal in size. PELVIS: Pelvic Organs: Unremarkable. Bladder: No bladder wall thickening, accounting for underdistention. Pelvic Nodes: No enlarged lymph nodes. Miscellaneous: No inguinal hernias are seen. Bones: No aggressive osseous abnormality. IMPRESSION: No evidence of bowel obstruction Approved by: Tj Reddy M.D. on 10/14/2024 at 13:52 Labs 10/14/24 13:21 10/14/24 13:21 Labs: Laboratory Results - last 24 hr 10/14/24 13:21 WBC 7.0 RBC 4.53 Hgb 14.6 Hct 42.2 MCV 93.2 MCH 32.3 MCHC 34.6 RDW 13.9 Plt Count 275 Neut % (Auto) 59.5 Lymph % (Auto) 29.6 [place] % (Auto) 7.2 Eos % (Auto) 2.5 Baso % (Auto) 1.2 Neut # (Auto) 4200 Lymph # (Auto) 2100 [place] # (Auto) 500 Eos # (Auto) 200 Baso # (Auto) 100 Sodium 138 Potassium 3.7 Chloride 105 Carbon Dioxide 23 BUN 8 Creatinine 0.73 Estimated GFR > 60 BUN/Creatinine Ratio 11.0 Glucose 93 Calcium 9.6 Total Bilirubin 0.8 AST 32 ALT 24 Alkaline Phosphatase 58 Total Protein 7.6 Albumin 4.8 Globulin 2.8 Albumin/Globulin Ratio 1.7 Lipase 238 PFSH Tobacco & Substance Use alcohol intake: never Assessment & Plan Assessment and plan (1) Abdominal pain: Status: Acute Plan Physical examination, lab tests as well as imaging are not consistent with a bowel obstruction. There appears to be no other potential clear source for her abdominal discomfort. I believe it is safe for her to travel which was her worry. Time-Based Coding :: [TOTAL MINUTES] spent with patient and on the chart (including review of chart, obtaining history, exam, reviewing outside data, placing orders, documenting exam and treatment plan, and counseling patient) on [DATE]. PROFEE Charge Codes Inpatient or Observation consultation: [id number]
== END 2024-10-14 17:21 | disposition home or self-care (01) ==
PROVIDERS: Emergency Provider Emergency Medicine
DX: R10.9 Unspecified abdominal pain (principal); R11.2 Nausea with vomiting, unspecified
CPT/HCPCS: 36415; 74177; 80053; 81003; 81025; 83690; 85025; 96361; 96374; 96375; 96376; 99222; 99284; J1171; J1200; J2405; J2919; Q9967

== ENCOUNTER 2025-01-21 18:31 | Emergency (ER) | payer OTHER, SELFPAY ==
[2025-01-21] VITALS (7 sets, daily range): BP systolic 130–151; BP diastolic 79–89; PULSE 74–93; RESP 17–24; TEMP 36.5; O2SAT 98–100; BMI 18.2
--- NOTE | 2025-01-21 19:22 | DI.MRI.S_ITS ---
PROCEDURE: MR ABDOME PELVIS WWO CON
--- NOTE | 2025-01-21 19:26 | ED_ITS ---
HPI - Abdominal Pain
--- NOTE | 2025-01-21 19:26 | ED.ABDPAIN ---
HPI - Abdominal Pain General Chief Complaint: Abdominal Pain Stated Complaint: post op possible bowel obstruction Time Seen by Provider: 01/21/25 18:55 Source: patient Mode of arrival: Ambulatory History of Present Illness HPI narrative: 40-year-old female history of jejunal intussusception, Jack-Danlos syndrome has been complaining of intermittent abdominal pain within the last 24-48 hours with mechanical gurgling sounds along with dry heaving while attempting to perform surgery today at her. This presentation reminded her of the jejunal obstruction she had previously had surgery for and was concerned and came in to be evaluated. She denies any chest pain,shortness of breath, dizziness, loss of consciousness, urinary problems, passing gas, rectal bleeding or hematuria. Other than what is stated 14 point review of system is negative. Related Data Previous Rx's ?Medication ?Instructions ?Recorded sertraline 100 mg tablet (Zoloft) 200 mg (2 x 100 mg) PO DAILY #60 04/20/24 tabs sucralfate 1 gram tablet (Carafate) 1 g PO QACHS #30 tabs 09/17/24 Allergies Allergy/AdvReac Type Severity Reaction Status Date / Time cefazolin Allergy blisters Verified 01/21/25 18:33 Cephalosporins Allergy SJS Verified 01/21/25 18:33 blisters Iodinated Contrast Media Allergy Anaphylaxis Verified 01/21/25 18:33 Review of Systems Review of Systems ROS Unobtainable: All systems reviewed & are unremarkable except as noted in HPI and below Patient History Social History alcohol intake: never Exam Narrative Exam Narrative: GENERAL: [40] year old patient appears stated age. Well-developed patient, in mild distress. HEAD: Atraumatic. Normocephalic. EYES: Pupils equal round and reactive. Extraocular motions intact. No scleral icterus. No injection or drainage. NECK: Trachea midline. Non tender GASTROINTESTINAL: Abdomen soft, TTP periumbical region with no r/r/g nondistended. EXTREMITIES: No edema or joint tenderness. BACK: Nontender without deformity or crepitance. No flank tenderness. NEURO: AOx3. SKIN: No rash or erythema of visible areas Initial Vital Signs Initial Vital Signs: Vital Signs Temperature 97.7 F 01/21/25 18:33 Pulse Rate 92 H 01/21/25 18:33 Respiratory Rate 17 01/21/25 18:33 Blood Pressure 139/89 01/21/25 18:33 Pulse Oximetry 100 01/21/25 18:33 Oxygen Delivery Method Room Air 01/21/25 18:33 Course Orders Ordered: Discontinued Medications Hydromorphone HCl (Hydromorphone 1 Mg/Ml Syringe) 1 mg IV NOW ONE Stop: 01/21/25 19:26 Last Admin: 01/21/25 19:45 Dose: 0.5 mg Documented By: ZION Lactated Ringer's (Lactated Ringers) 1,000 mls @ 1,000 mls/hr IV BOLUS ONE Stop: 01/21/25 20:21 Last Infusion: 01/21/25 21:02 Dose: Infused Documented By: Admin: 01/21/25 20:09 Dose: 1,000 mls/hr Documented By: ZION Ketorolac Tromethamine (Ketorolac 30 Mg/Ml Vial) 15 mg IV NOW ONE Stop: 01/21/25 19:26 Last Admin: 01/21/25 19:44 Dose: 15 mg Documented By: ZION Ondansetron HCl (Ondansetron 4 Mg/2 Ml Inj) 4 mg IV NOW PRN PRN Reason: Nausea And Vomiting Last Admin: 01/21/25 19:45 Dose: 4 mg Documented By: ZION Ondansetron HCl (Ondansetron 4 Mg Odt) 4 mg PO NOW PRN PRN Reason: Nausea And Vomiting Vital Signs Vital signs: Vital Signs - 8 hr 01/21/25 18:33 01/21/25 19:05 01/21/25 19:10 Temperature 97.7 F Pulse Rate 92 H 88 93 H Respiratory Rate 17 Blood Pressure 139/89 Pulse Oximetry 100 99 98 Oxygen Delivery Method Room Air 01/21/25 19:10 01/21/25 22:01 Temperature Pulse Rate 81 Respiratory Rate 20 20 Blood Pressure 130/81 151/79 H Pulse Oximetry 99 Oxygen Delivery Method Room Air MDM - Abdominal Pain Lab Data 01/21/25 21:00 01/21/25 21:00 Labs: Lab Results 01/21/25 Range/Units 21:00 WBC 8.0 (4.5-11.0) X10^3/uL RBC 4.31 (4.0-5.2) X10^6/uL Hgb 13.3 (12.0-16.0) g/dL Hct 39.2 (36-46) % MCV 91.0 (80-100) fL MCH 30.8 (26-34) PG MCHC 33.9 (30-36) % RDW 13.7 (11.6-14.8) % Plt Count 214 (150-400) X10^3/uL Neut % (Auto) 75.8 H (50-75) % Lymph % (Auto) 13.6 L (25-40) % [place] % (Auto) 6.1 (3-14) % Eos % (Auto) 1.8 L (2-4) % Baso % (Auto) 2.7 H (0-2) % Neut # (Auto) 6000 (3837-1264) /uL Lymph # (Auto) 1100 (8314-9556) /uL [place] # (Auto) 500 (0-900) /uL Eos # (Auto) 100 (0-450) /uL Baso # (Auto) 200 H (0-100) /uL Sodium 133 L (137-145) mmol/L Potassium 3.9 (3.4-5.1) mmol/L Chloride 103 (98-107) mmol/L Carbon Dioxide 23 (22-32) mmol/L BUN 8 (7-17) mg/dL Creatinine 0.60 (0.52-1.04) mg/dL Estimated GFR > 60 (>60) mL/min BUN/Creatinine Ratio 13.3 (6-22) Glucose 82 (70-99) mg/dL Calcium 9.0 (8.4-10.2) mg/dL Total Bilirubin 0.6 (0.2-1.3) mg/dL AST 27 (14-36) IU/L ALT 16 (<35) IU/L Alkaline Phosphatase 49 (38-126) U/L Total Protein 6.9 (6.3-8.2) g/dL Albumin 4.2 (3.5-5.0) g/dL Globulin 2.7 (1.7-4.1) g/dL Albumin/Globulin Ratio 1.6 (1.0-2.8) Lipase 69 (23-300) U/L Imaging Data US - abdomen: Radiologist's Impression: [address] [address] Ultrasound Report Signed Patient: Kiya Barber MR#: [id number] : 1985 Acct:[id number] Age/Sex: 40 / F Date of Service: 01/21/25 Loc: ED Accession Number: [id number] Procedure: US abdomen complete Ordering Provider: Atilio White D.O. PROCEDURE: US ABDOMEN COMPLETE INDICATIONS: diffuse abd pain TECHNIQUE: Real-time scanning was performed of the abdominal and retroperitoneal organs, with image documentation. COMPARISON: Merged With [facility], MR, ABDOMEN PELVIS WWO CON, 01/21/2025, 20:25. FINDINGS: Liver: Liver measures 13 cm. Gallbladder: Unremarkable Biliary ducts: Intrahepatic bile ducts are non-dilated. Extrahepatic bile duct caliber measures 2 mm. Normal is 6-7 mm or less in diameter, or 10 mm or less post-cholecystectomy. Pancreas: Visualized portions of the pancreas are sonographically normal. Spleen: Spleen is normal in size and homogeneous in echotexture. Kidneys: Kidneys are normal in size and echotexture. Right kidney measures 10 cm long; left kidney measures 10 cm long. No hydronephrosis or nephrolithiasis. No solid masses. Aorta: Visualized aorta is normal in caliber at less than 3 cm. Iliacs: Proximal common iliac arteries are normal in caliber at less than 2.5 cm. IVC: Intrahepatic inferior vena cava is patent. Miscellaneous: No intussusception identified by ultrasound. Distended ascending and transverse colon partially visualized. Debris is seen in the urinary bladder. IMPRESSION: Distended ascending and transverse colon. No intussusception identified by ultrasound. Unremarkable gallbladder and biliary system. Debris is seen in the urinary bladder, correlate urinalysis ECG Data Interpretation: [address] [address] Magnetic Resonance Report Signed Patient: Kiya Barber MR#: [id number] : 1985 Acct:[id number] Age/Sex: 40 / F Date of Service: 01/21/25 Loc: ED Accession Number: [id number] Procedure: MR abdomen pelvis wwo con Ordering Provider: Atilio White D.O. PROCEDURE: MR ABDOME PELVIS WWO CON INDICATIONS: hx of intussception - enterograpy TECHNIQUE: After the ingestion of oral contrast, coronal and axial HASTE, coronal 2-D FLASH in-and [id number] sequences. After the administration of contrast, coronal and axial VIBE or 2-D FLASH with fat saturation sequences acquired through the abdomen and pelvis. Optional diffusion weighted imaging and ADC may be performed. COMPARISON: Merged With [facility], CT, CT ABDOMEN PELVIS W CON, 10/14/2024, 14:18. FINDINGS: Image quality: [id number] motion artifact Lower chest: Unremarkable lung bases Liver: Not fully seen on this enterography protocol study, no gross abnormality. Gallbladder and biliary system: Unremarkable, nondilated Pancreas: Mildly tortuous pancreatic duct, without dilation. There may be partial divisum anatomy. Spleen: Nonenlarged Adrenals: No discrete nodules Kidneys: No solid mass or hydronephrosis Vessels and lymph nodes: The main portal vein appears patent. There is no abdominal aortic aneurysm. No enlarged lymph nodes by size criteria. Bowel and peritoneum: There is no evidence of active colitis. Moderate to large colonic gas and fecal burden, most significant in the ascending colon. Moderate degree of gastric distention. There is no small bowel obstruction. Left mid abdominal postsurgical changes. No drainable abscess or ascites Body wall: Unremarkable Pelvis: Bladder appears unremarkable. Retroverted uterus. Suspect physiologic follicles and cysts in the ovaries. Small 1.1 cm intramural fibroid. No perianal abscess. Bones: No significant sacroiliac inflammation. Mild disc desiccation seen throughout the lumbar spine IMPRESSION: No active bowel inflammation identified on this MRI enterography study. Moderate gastric distention is seen, but without small bowel obstruction. Left mid abdominal postsurgical changes. Moderate to large colonic gas and fecal burden most significant in the ascending colon. Other findings above. Dictated by: Chong Saini M.D. on 01/21/2025 at 20:56 Approved by: Chong Saini M.D. on 01/21/2025 at 21:10 MDM Narrative Medical decision making narrative: All lab work, vital signs, nurse triage note, medication list, previous ER visits, and all imaging studies reviewed. MRI showed no active bowel wall inflammation. identified on this MRI moderate gastric distention is seen but without small-bowel obstruction. Left mid abdominal postsurgical changes. [id number] colonic gas and fecal burden most significant in the ascending colon. Ultrasound showed distended ascending and transverse colon. No intussusception identified by ultrasound. Unremarkable gallbladder and biliary system. Debris is seen in the urinary bladder. WBC 8.0 hemoglobin 13.3 platelet 214 sodium 133 potassium 3.9 chloride 103 CO2 23 BUN 8 creatinine 0.6 glucose 82 LFTs normal lipase 69. Patient given fluids, Toradol, and Dilaudid here. Differential diagnosis diverticulitis, pancreatitis, kidney stone, kidney infection, constipation, volvulus, obstruction, Crohn's disease, ulcerative colitis. Pt will f/u with GI MD and MD surgeon regarding follow up and further work up from today's ER visit. Discharge Plan Departure Patient Disposition: Home Clinical Impression: Abdominal pain, Nausea Instructions: DI for Abdominal Pain-Adult Activity Restrictions/Additional Instructions: Return with new or worsening symptoms. Follow up with GI MD this week. Prescriptions: No Action sertraline [Zoloft] 100 mg tablet 200 mg PO DAILY Qty: 60 6RF sucralfate [Carafate] 1 gram tablet 1 g PO QACHS Qty: 30 2RF Stand Alone Forms: Patient Portal/API
[2025-01-21] MEDS: KETOROLAC 30 MG/ML VIAL 15 MG IV (19:44)
[2025-01-21] MEDS: ONDANSETRON 4 MG/2 ML INJ IV (19:45)
[2025-01-21] MEDS: LACTATED RINGERS 1,000 ML 1000 ML IV (20:09)
[2025-01-21 21:16] LABS: Add Manual Diff / Slide Review NO; Hematocrit 39.2 % (36-46); Hemoglobin 13.3 g/dL (12.0-16.0); Lymphocytes Absolute Auto 1100 /uL (1100-4500); Mean Corpuscular HGB Conc 33.9 % (30-36); Mean Corpuscular Hemoglobin 30.8 PG (26-34); Mean Corpuscular Volume 91.0 fL (80-100); Platelet Count 214 X10^3/uL (150-400)
[2025-01-21 21:27] LABS: HEMOLYSIS 41 (0-50); Potassium 3.9 mmol/L (3.4-5.1)
[2025-01-21 21:28] LABS: Alanine Aminotransferase 16 IU/L (<35); Albumin 4.2 g/dL (3.5-5.0); Albumin Globulin Ratio 1.6 (1.0-2.8); Alkaline Phosphatase 49 U/L (38-126); Blood Urea Nitrogen 8 mg/dL (7-17); Calcium 9.0 mg/dL (8.4-10.2); Carbon Dioxide 23 mmol/L (22-32); Chloride 103 mmol/L (98-107); Estimated Glomerular Filt Rate > 60 mL/min (>60); Globulin 2.7 g/dL (1.7-4.1); Glucose 82 mg/dL (70-99); Lipase 69 U/L (23-300); Sodium 133 mmol/L (137-145); Total Protein 6.9 g/dL (6.3-8.2)
--- NOTE | 2025-01-21 21:56 | DI.US.S_ITS ---
PROCEDURE: US ABDOMEN COMPLETE
== END 2025-01-21 23:36 | disposition home or self-care (01) ==
PROVIDERS: Emergency Provider Family Medicine
DX: R10.9 Unspecified abdominal pain (principal); R11.0 Nausea
CPT/HCPCS: 72197; 74183; 76700; 80053; 83690; 85025; 96361; 96374; 96375; 99284; A9579; J1171; J1885; J2405; J7120

== ENCOUNTER → 2025-01-31 14:04 | Outpatient (CLI) | payer OTHER, SELFPAY ==
[2025-01-31 14:40] LABS: Add Manual Diff / Slide Review NO; Hematocrit 45.2 % (36-46); Hemoglobin 15.3 g/dL (12.0-16.0); Lymphocytes Absolute Auto 2000 /uL (1100-4500); Mean Corpuscular HGB Conc 33.9 % (30-36); Mean Corpuscular Hemoglobin 30.9 PG (26-34); Mean Corpuscular Volume 91.0 fL (80-100); Platelet Count 266 X10^3/uL (150-400)
== END ==
PROVIDERS: Referring Provider Physician Assistant; Visit Provider Physician Assistant
DX: R10.12 Left upper quadrant pain (principal); R11.2 Nausea with vomiting, unspecified; R63.4 Abnormal weight loss; Z87.19 Personal history of other diseases of the digestive system
CPT/HCPCS: 36415; 85025; 85651; 86140

== ENCOUNTER → 2025-02-01 09:27 | Outpatient (CLI) | payer OTHER, SELFPAY | PROVIDERS: Referring Provider Physician Assistant; Visit Provider Physician Assistant | DX: R10.12 Left upper quadrant pain (principal); R11.2 Nausea with vomiting, unspecified; R63.4 Abnormal weight loss; Z87.19 Personal history of other diseases of the digestive system | CPT/HCPCS: 83993 ==